=== PATIENT | female | born 2000 | race Caucasian/White ===

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

== ENCOUNTER 2020-05-10 22:39 | Emergency (ER) | payer OTHER ==
[2020-05-10 22:48] VITALS: RESP 16; TEMP 99
[2020-05-11 01:20] VITALS: BP 101/63; PULSE 96
[2020-05-11 01:24] LABS: Basophils # (A) 0.1 k/uL (0-0.2); Basophils % (A) 1 %; Eosinophils # (A) 0.1 k/uL (0-0.7); Eosinophils % (A) 1 %; HCT 33.4 % (34.0-46.0); HGB 11.5 gm/dL (11.4-16.0); Lymphocytes % (A) 26 %; MCH 29.9 pg (25.0-35.0); MCHC 34.3 g/dL (31.0-37.0); MCV 87.2 fL (80.0-100.0); Mean Platelet Volume 6.7; Monocytes # (A) 0.6 k/uL (0-1.0); Monocytes % (A) 6 %; Neutrophils # (A) 7.4 k/uL (1.3-7.7); Neutrophils % (A) 65 %; Platelet Count 302 k/uL (150-450); RBC 3.83 m/uL (3.80-5.40); RDW 12.2 % (11.5-15.5); WBC 11.3 k/uL (3.8-10.6)
[2020-05-11 01:43] LABS: ALT 11 U/L (4-34); AST 25 U/L (14-36); African American GFR (CKD) >90 (>60 ml/min/1.73 sqM); Albumin 3.7 g/dL (3.5-5.0); Alkaline Phosphatase 79 U/L (38-126); Anion Gap 6 mmol/L; Blood Urea Nitrogen 11 mg/dL (7-17); Calcium 9.1 mg/dL (8.4-10.2); Carbon Dioxide 27 mmol/L (22-30); Chloride 104 mmol/L (98-107); Glucose 91 mg/dL (74-99); Non-African American GFR(CKD) >90 (>60 ml/min/1.73 sqM); Potassium 3.9 mmol/L (3.5-5.1); Sodium 137 mmol/L (137-145); Total Bilirubin 0.3 mg/dL (0.2-1.3); Total Protein 6.7 g/dL (6.3-8.2)
--- NOTE | 2020-05-11 01:47 | US ---
EXAM: US First Trimester , Transabdominal and Transvaginal CLINICAL HISTORY: Pain. TECHNIQUE: Real-time transabdominal and transvaginal obstetrical ultrasound of the maternal pelvis and a first trimester with image documentation. Transvaginal imaging was used for better evaluation of the fetus and adnexa. COMPARISON: No relevant prior studies available. FINDINGS: The uterus is within normal limits for size and contour without myometrial mass. There is no intrauterine gestational sac. The lower aspect of the endometrial canal and the cervix are very distended with very heterogeneous material up to a thickness of 5.7 cm. The majority of this likely represents a blood clot. Some retained products of conception or possible though this is not highly vascular. Neither maternal ovary could be identified due to extensive gas in the adnexal regions. No adnexal mass or significant free fluid is evident. IMPRESSION: No intrauterine gestational sac. Lower endometrium endocervical canal markedly distended with heterogeneous material which may represent accommodation of blood clot and retained products of conception.
[2020-05-11 01:57] LABS: HCG,Quantitative Serum 282.9 mIU/mL
--- NOTE | 2020-05-11 02:42 | ED ---
General Adult HPI - General Chief complaint: Vaginal Bleeding Stated complaint: Vaginal Bleeding Time Seen by Provider: 05/10/20 23:18 Source: patient, RN notes reviewed, old records reviewed Mode of arrival: ambulatory Limitations: no limitations - History of Present Illness Initial comments: 20-year-old female patient to ED for evaluation patient was approximately 10 weeks sensation when she was told that she had a miscarriage last Saturday. She had some vaginal bleeding and then reportedly had an ultrasound which did not display any signs of life. Patient had some bleeding after that subsided. Patient reported today she again has been having some vaginal bleeding and passing clots. Denies any other complaints. Systemic: Pt denies fatigue, fever/chills, rash. Pt denies weakness, night sweats, weight loss. Neuro: Pt denies headache, visual disturbances, syncope or pre-syncope. HEENT: Pt denies ocular discharge or irritation, otalgia, rhinorrhea, pharyngitis or notable lymphadenopathy. Cardiopulmonary: Pt denies chest pain, SOB, heart palpitations, dyspnea on exertion. Abdominal/GI: Pt denies abdominal pain, n/v/d. : Pt denies dysuria, burning w/ urination, frequency/urgency. Denies new onset urinary or bowel incontinence. MSK: Pt denies myalgia, loss of strength or function in extremities. Neuro: Pt denies new onset weakness, paresthesias. - Related Data Home Medications Medication Instructions Recorded Confirmed No Known Home Medications 06/09/16 06/09/16 Allergies Allergy/AdvReac Type Severity Reaction Status Date / Time No Known Allergies Allergy Verified 05/10/20 22:48 Review of Systems ROS Statement: Those systems with pertinent positive or pertinent negative responses have been documented in the HPI. ROS Other: All systems not noted in ROS Statement are negative. Past Medical History Past Medical History: No Reported History History of Any Multi-Drug Resistant Organisms: None Reported Past Surgical History: No Surgical Hx Reported Past Psychological History: ADD/ADHD, Anxiety Smoking Status: Vaper Past Alcohol Use History: None Reported Past Drug Use History: Marijuana General Exam - General Exam Comments Initial Comments: Constitutional: NAD, AOX3, Pt has pleasant affect. HEENT: NC/AT, trachea midline, neck supple, no lymphadenopathy. External ears appear normal, without discharge. Mucous membranes moist. Eyes PERRLA, EOM intact. There is no scleral icterus. No pallor noted. Cardiopulmonary: RRR, no murmurs, rubs or gallops, no JVD noted. Lungs CTAB in anterior and posterior aden. No peripheral edema. Abdominal exam: Abdomen soft and non-distended. Abdomen non-tender to palpation in all 4 quadrants. Bowel sounds active in LLQ. No hepatosplenomegaly. No ecchymosis Neuro: CN II-XII grossly intact. No nuchal rigidity. No raccon eyes, no suazo s ign, no hemotympanum. No cervical spinal tenderness. MSK: No posterior calf tenderness bilaterally, homans sign negative bilaterally. Posterior tibialis and radial pulse +2 bilaterally. Sensation intact in upper and lower extremities. Full active ROM in upper and lower extremities, 5/5 stregnth. Pelvic: Cervix is visualized and is open. Clots are noted, blood and posterior vaginal vault, small amount of active bleeding is noted. Mucosa pink, no lesions. Chaperogned by Kaylah Limitations: no limitations Course Vital Signs 05/10/20 05/11/20 22:45 01:18 Temperature 99 F Pulse Rate 108 H 96 Respiratory 16 Rate Blood Pressure 122/73 101/63 O2 Sat by Pulse 100 98 Oximetry Medical Decision Making - Medical Decision Making 20-year-old female patient to ED. Patient vaginal bleeding last Saturday went to another facility and was told she is having a miscarriage. Patient then had some vaginal bleeding and passing clots today. She reports that she has gone through around 10 pads throughout the day. Laboratory investigations hemoglobin of 11.5. HCG Quant of 282. Transvaginal ultrasound displayed lower endometrium endocervical canal markedly distended with heterogenous material which blood clot or possible retained products of conception. They should reports that she is a positive blood type has never had to have RhoGAM before. This has not resulted however patient is requesting to be discharged prior. Discussed risks and benefits. Patient will be discharged will follow up with primary care provider and OB/transforaminal troponin worsening symptoms. Case discussed with Dr. Eric. - Lab Data Result diagrams: 05/10/20 23:36 05/10/20 23:36 Lab Results 05/10/20 05/10/20 05/11/20 Range/Units 23:36 23:36 00:21 WBC 11.3 H (3.8-10.6) k/uL RBC 3.83 (3.80-5.40) m/uL Hgb 11.5 (11.4-16.0) gm/dL Hct 33.4 L (34.0-46.0) % MCV 87.2 (80.0-100.0) fL MCH 29.9 (25.0-35.0) pg MCHC 34.3 (31.0-37.0) g/dL RDW 12.2 (11.5-15.5) % Plt Count 302 (150-450) k/uL MPV 6.7 Neutrophils % 65 % Lymphocytes % 26 % Monocytes % 6 % Eosinophils % 1 % Basophils % 1 % Neutrophils # 7.4 (1.3-7.7) k/uL Lymphocytes # 3.0 (1.0-4.8) k/uL Monocytes # 0.6 (0-1.0) k/uL Eosinophils # 0.1 (0-0.7) k/uL Basophils # 0.1 (0-0.2) k/uL Sodium 137 (137-145) mmol/L Potassium 3.9 (3.5-5.1) mmol/L Chloride 104 (98-107) mmol/L Carbon Dioxide 27 (22-30) mmol/L Anion Gap 6 mmol/L BUN 11 (7-17) mg/dL Creatinine 0.47 L (0.52-1.04) mg/dL Est GFR (CKD-EPI)AfAm >90 (>60 ml/min/1.73 sqM) Est GFR (CKD-EPI)NonAf >90 (>60 ml/min/1.73 sqM) Glucose 91 (74-99) mg/dL Calcium 9.1 (8.4-10.2) mg/dL Total Bilirubin 0.3 (0.2-1.3) mg/dL AST 25 (14-36) U/L ALT 11 (4-34) U/L Alkaline Phosphatase 79 (38-126) U/L Total Protein 6.7 (6.3-8.2) g/dL Albumin 3.7 (3.5-5.0) g/dL HCG, Quant 282.9 mIU/mL Urine HCG, Qual Detected (Not Detectd) Disposition Clinical Impression: Miscarriage Disposition: HOME SELF-CARE Condition: Stable Instructions (If sedation given, give patient instructions): Miscarriage (ED) Additional Instructions: Follow up with PCP and sustainability project coordinator tomorrow. Have HCG trended down to zero by sustainability project coordinator. Return to ED with any worsening symptoms. Is patient prescribed a controlled substance at d/c from ED?: No Referrals: Alexa Aguiar MD [Primary Care Provider] - 1-2 days
== END 2020-05-11 03:01 | disposition home or self-care (01) ==
LOC: EC 22:39
DX: O03.9 Complete or unspecified spontaneous abortion without complication (principal); N85.8 Other specified noninflammatory disorders of uterus; F17.290 Nicotine dependence, other tobacco product, uncomplicated
CPT/HCPCS: 36415; 76801; 76817; 80053; 81025; 84702; 85025; 86850; 86900; 86901; 99284

== ENCOUNTER 2020-12-11 14:30 | Emergency (ER) | payer OTHER ==
[2020-12-11 14:54] VITALS: BP 90/59; PULSE 83; RESP 16; TEMP 98
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
--- NOTE | 2020-12-11 15:48 | XR ---
EXAMINATION TYPE: XR foot complete LT DATE OF EXAM: 12/11/2020 COMPARISON: NONE HISTORY: Pain and swelling TECHNIQUE: 3 views FINDINGS: There are nondisplaced fractures of the neck of the second and third and fourth metatarsal heads. There is no dislocation. The toes appear intact. Hindfoot appears intact. On the lateral view there is a small linear density projected over the soft tissues on the plantar aspect of the hindfoot at the level of the anterior calcaneus. This could be a foreign body. IMPRESSION: Multiple metatarsal nondisplaced fractures. Possible small foreign body.
== END 2020-12-11 17:05 | disposition home or self-care (01) ==
LOC: EC 14:30
DX: S92.325A Nondisplaced fracture of second metatarsal bone, left foot, initial encounter for closed fracture (principal); S92.335A Nondisplaced fracture of third metatarsal bone, left foot, initial encounter for closed fracture; S92.345A Nondisplaced fracture of fourth metatarsal bone, left foot, initial encounter for closed fracture; F17.290 Nicotine dependence, other tobacco product, uncomplicated; F90.9 Attention-deficit hyperactivity disorder, unspecified type; F41.9 Anxiety disorder, unspecified; F12.90 Cannabis use, unspecified, uncomplicated; X58.XXXA Exposure to other specified factors, initial encounter
CPT/HCPCS: 29515; 99283

== ENCOUNTER 2021-01-28 12:49 | Emergency (ER) | payer OTHER ==
[2021-01-28 12:53] VITALS: BP 104/70; PULSE 99; RESP 18; TEMP 98.8
[2021-01-28 13:36] LABS: Appearance,Urine Cloudy (Clear); Bacteria,Urine Rare /hpf; Bilirubin,Urine Negative (Negative); Blood,Urine Large (Negative); Color,Urine Yellow; Glucose,Urine (UA) Negative (Negative); Ketones,Urine Negative (Negative); Leukocyte Esterase,Urine Large (Negative); Mucus,Urine Many /hpf; Nitrite,Urine Negative (Negative); Protein,Urine 2+ (Negative); RBC,Urine >182 /hpf (0-5); Specific Gravity,Urine 1.021 (1.001-1.035); Squamous Epithelial Cell,Urine 3 /hpf (0-4); Urobilinogen,Urine <2.0 mg/dL (<2.0); WBC,Urine >182 /hpf (0-5)
--- NOTE | 2021-01-28 13:48 | ED ---
Female Urogenital HPI - General Chief complaint: Urogenital Stated complaint: low back pain Time Seen by Provider: 01/28/21 12:56 Source: patient, RN notes reviewed Mode of arrival: wheelchair Limitations: no limitations - History of Present Illness Initial comments: This a 20-year-old female presents emergency Department with chief complaint of dysuria, urinary frequency. Patient states started a few days ago. She started having some flank pain this morning. Patient is concerned that she has a recurrent urinary tract infection. Patient denies any chance pregnancycontacts other complaints. Last Menstrual Period: 01/13/21 - Related Data Previous Rx's Medication Instructions Recorded Cephalexin [Keflex] 500 mg PO Q6HR #28 cap 01/28/21 Allergies Allergy/AdvReac Type Severity Reaction Status Date / Time No Known Allergies Allergy Verified 01/28/21 12:53 Review of Systems ROS Statement: Those systems with pertinent positive or pertinent negative responses have been documented in the HPI. ROS Other: All systems not noted in ROS Statement are negative. Past Medical History Past Medical History: No Reported History History of Any Multi-Drug Resistant Organisms: None Reported Past Surgical History: No Surgical Hx Reported Past Psychological History: ADD/ADHD, Anxiety Smoking Status: Never smoker Past Alcohol Use History: None Reported Past Drug Use History: Marijuana General Exam Limitations: no limitations General appearance: alert, in no apparent distress Head exam: Present: atraumatic, normocephalic, normal inspection Respiratory exam: Present: normal lung sounds bilaterally. Absent: respiratory distress, wheezes, rales, rhonchi, stridor Cardiovascular Exam: Present: regular rate, normal rhythm, normal heart sounds. Absent: systolic murmur, diastolic murmur, rubs, gallop, clicks GI/Abdominal exam: Present: soft, normal bowel sounds. Absent: distended, tenderness, guarding, rebound, rigid Back exam: Absent: CVA tenderness (R), CVA tenderness (L) Course Vital Signs 01/28/21 12:50 Temperature 98.8 F Pulse Rate 99 Respiratory 18 Rate Blood Pressure 104/70 O2 Sat by Pulse 99 Oximetry Medical Decision Making - Medical Decision Making Patient has evidence of urinary tract infection was started on oral antibiotics return parameters were discussed. - Lab Data Lab Results 01/28/21 01/28/21 Range/Units 13:15 13:15 Urine Color Yellow Urine Appearance Cloudy H (Clear) Urine pH 6.0 (5.0-8.0) Ur Specific [place] 1.021 (1.001-1.035) Urine Protein 2+ H (Negative) Urine Glucose (UA) Negative (Negative) Urine Ketones Negative (Negative) Urine Blood Large H (Negative) Urine Nitrite Negative (Negative) Urine Bilirubin Negative (Negative) Urine Urobilinogen <2.0 (<2.0) mg/dL Ur Leukocyte Esterase Large H (Negative) Urine RBC >182 H (0-5) /hpf Urine WBC >182 H (0-5) /hpf Urine WBC Clumps Moderate H (None) /hpf Ur Squamous Epith Cells 3 (0-4) /hpf Urine Bacteria Rare H (None) /hpf Urine Mucus Many H (None) /hpf Urine HCG, Qual Not Detected (Not Detectd) Disposition Clinical Impression: Urinary tract infection Disposition: HOME SELF-CARE Condition: Stable Instructions (If sedation given, give patient instructions): Urinary Tract Infection in Women (ED) Additional Instructions: Please return to the Emergency Department if symptoms worsen or any other concerns. Prescriptions: Cephalexin [Keflex] 500 mg PO Q6HR #28 cap Is patient prescribed a controlled substance at d/c from ED?: No Referrals: Alexa Aguiar MD [Primary Care Provider] - 1-2 days Time of Disposition: 13:48
== END 2021-01-28 14:06 | disposition home or self-care (01) ==
LOC: EC 12:49
DX: N39.0 Urinary tract infection, site not specified (principal); F90.9 Attention-deficit hyperactivity disorder, unspecified type; F41.9 Anxiety disorder, unspecified; F12.90 Cannabis use, unspecified, uncomplicated
CPT/HCPCS: 81001; 81025; 87086; 99284

== ENCOUNTER 2021-12-08 06:00 | Inpatient (IN) | payer OTHER ==
[2021-12-08] MEDS ORDERED: CARBOPROST TROMETHAMINE 250 MCG/ML 1 ML AMP IM PRN (06:24)
[2021-12-08] MEDS ORDERED: METHYLERGONOVINE 0.2 MG/ML 1 ML AMP IM PRN (06:24)
[2021-12-08] MEDS ORDERED: LIDOCAINE 0.5% (PF) 5 MG/ML (50 ML SDV) SQ PRN (06:24)
[2021-12-08] MEDS ORDERED: TERBUTALINE 1 MG/ML VIAL SQ PRN (06:24)
[2021-12-08] MEDS ORDERED: OXYTOCIN 10 UNIT/ML 1 ML VIAL IM PRN (06:24)
[2021-12-08] MEDS ORDERED: OXYTOCIN 30 UNITS/500 ML NS 30 UNIT in SALINE 1 500ML.BAG IV SCH ×2 (06:30→15:15)
[2021-12-08] MEDS: LACTATED RINGERS 1,000 ML IV SCH ×3 (06:40→11:13)
[2021-12-08 07:02] LABS: Basophils # (A) 0.1 k/uL (0-0.2); Basophils % (A) 1 %; Eosinophils # (A) 0.2 k/uL (0-0.7); Eosinophils % (A) 1 %; HCT 34.1 % (34.0-46.0); HGB 11.4 gm/dL (11.4-16.0); Lymphocytes # (A) 2.8 k/uL (1.0-4.8); Lymphocytes % (A) 22 %; MCH 30.6 pg (25.0-35.0); MCHC 33.3 g/dL (31.0-37.0); MCV 91.8 fL (80.0-100.0); Mean Platelet Volume 7.7; Monocytes # (A) 0.6 k/uL (0-1.0); Monocytes % (A) 5 %; Neutrophils # (A) 8.8 k/uL (1.3-7.7); Neutrophils % (A) 69 %; Platelet Count 331 k/uL (150-450); RBC 3.72 m/uL (3.80-5.40); RDW 12.7 % (11.5-15.5); WBC 12.7 k/uL (3.8-10.6)
[2021-12-08 07:10] LABS: Amphetamine Screen,Urine Not Detected (NotDetected); Barbiturate Screen,Urine Not Detected (NotDetected); Benzodiazepines Screen,Urine Not Detected (NotDetected); Cocaine Screen,Urine Not Detected (NotDetected); Methadone Screen, Urine Not Detected (NotDetected); Opiate Screen,Urine Not Detected (NotDetected); Oxycodone Screen, Urine Not Detected (NotDetected); Phencyclidine Screen,Urine Not Detected (NotDetected); Tricyclic Antidepressant,Urine Not Detected (NotDetected); Urn Cannabinoid Scrn Detected (NotDetected)
--- NOTE | 2021-12-08 08:04 | P.HPOB ---
History of Present Illness H&P Date: 12/08/21 Chief Complaint: Induction of labor 21-year-old presents at 37 weeks and 3 days for induction of labor. Her cervix is 2 cm dilated, 70% effaced, and -2 station. She is al irregularly. heart tones are 135 with moderate variability and reactive. This patient is being delivered at 37 weeks due to history of drug use, cocaine and THC, IUGR, circumvallate placenta, elevated Dopplers. Review of Systems All systems: negative Constitutional: Denies chills, Denies fever Eyes: denies blurred vision, denies pain Ears, nose, mouth and throat: Denies headache, Denies sore throat Cardiovascular: Denies chest pain, Denies shortness of breath Respiratory: Denies cough Gastrointestinal: Denies abdominal pain, Denies diarrhea, Denies nausea, Denies vomiting Genitourinary: Denies dysuria, Denies hematuria Musculoskeletal: Denies myalgias Integumentary: Denies pruritus, Denies rash Neurological: Denies numbness, Denies weakness Psychiatric: Denies anxiety, Denies depression Endocrine: Denies fatigue, Denies weight change Past Medical History Past Medical History: No Reported History History of Any Multi-Drug Resistant Organisms: None Reported Past Surgical History: No Surgical Hx Reported Additional Past Surgical History / Comment(s): surgery on right arm in second grade Past Anesthesia/Blood Transfusion Reactions: No Reported Reaction Past Psychological History: ADD/ADHD, Anxiety, PTSD Smoking Status: Former smoker Past Alcohol Use History: None Reported Past Drug Use History: Cocaine (has not used in several months), Marijuana (pt states last used 2-3 days ago, using for PTSD) - Past Family History Mother Family Medical History: No Reported History Medications and Allergies Home Medications Medication Instructions Recorded Confirmed Type Vits96/Iron Fum/Folic 1 tab PO DAILY 12/08/21 12/08/21 History [ Tablet] Sertraline [Zoloft] 1 tab PO DAILY 12/08/21 12/08/21 History Allergies Allergy/AdvReac Type Severity Reaction Status Date / Time No Known Allergies Allergy Verified 01/28/21 12:53 Exam Osteopathic Statement: *. No significant issues noted on an osteopathic structural exam other than those noted in the History and Physical/Consult. Vital Signs Temp Pulse Resp BP 06/24/22 06:20 97.5 F L 71 17 112/58 Intake and Output 12/07/21 12/08/21 12/08/21 22:59 06:59 14:59 Other: Weight 60.328 kg Heart: Regular rate and rhythm Lungs: Clear to auscultation bilaterally Abdomen: Soft, nontender Extremities: Negative Homans sign Results Result Diagrams: 12/08/21 06:50 Abnormal Lab Results - Last 24 Hours (Table) 12/08/21 12/08/21 Range/Units 06:10 06:50 WBC 12.7 H (3.8-10.6) k/uL RBC 3.72 L (3.80-5.40) m/uL Neutrophils # 8.8 H (1.3-7.7) k/uL U Marijuana (THC) Screen Detected H (NotDetected) Assessment and Plan (1) IUGR (intrauterine growth restriction) Current Visit: Yes Status: Acute Code(s): RGW5557 - SNOMED Code(s): 68583877 (2) 37 weeks gestation of Current Visit: Yes Status: Acute Code(s): Z3A.37 - 37 WEEKS GESTATION OF SNOMED Code(s): 90683601 (3) Circumvallate placenta Current Visit: Yes Status: Acute Code(s): O43.119 - CIRCUMVALLATE PLACENTA, UNSPECIFIED TRIMESTER SNOMED Code(s): 6719027 (4) Drug use affecting Current Visit: Yes Status: Acute Code(s): O99.320 - DRUG USE COMPLICATING , UNSPECIFIED TRIMESTER SNOMED Code(s): 09363568 Plan: 1. induction of labor with amniotomy Pitocin 2. Anticipate normal vaginal delivery 3. Social work consult after delivery
[2021-12-08] MEDS ORDERED: SODIUM CHLORIDE 0.9% 100 ML BAG ONE (10:30)
[2021-12-08] MEDS ORDERED: ROPIVACAINE 5MG/ML 20ML VIAL ONE (10:30)
[2021-12-08] MEDS ORDERED: fentaNYL (PF) 50 MCG/ML 5 ML AMP ONE (10:30)
[2021-12-08] MEDS ORDERED: SIMETHICONE 80 MG CHEWABLE PO PRN (15:12)
[2021-12-08] MEDS ORDERED: HYDROCORTISONE 2.5% RECTAL CREAM 30 GM TUBE RECTAL PRN (15:12)
[2021-12-08] MEDS ORDERED: diphenhydrAMINE 50 MG CAP PO PRN (15:12)
[2021-12-08] MEDS ORDERED: BENZOCAINE/MENTHOL SPRAY 1 GM/SPRAY AEROSOL TOPICAL PRN (15:12)
[2021-12-08] MEDS ORDERED: ZOLPIDEM 5 MG TAB PO PRN (15:12)
[2021-12-08] MEDS ORDERED: LANOLIN CREAM 5 GM TUBE TOPICAL PRN (15:12)
[2021-12-08] MEDS ORDERED: diphenhydrAMINE 50 MG/ML 1 ML VIAL IVP PRN ×2 (15:12)
[2021-12-08] MEDS ORDERED: diphenhydrAMINE 25 MG CAP PO PRN (15:12)
[2021-12-08] MEDS: IBUPROFEN 600 MG TAB PO PRN ×2 (15:56→21:37)
[2021-12-08] MEDS: ACETAMINOPHEN TAB 325 MG TAB PO PRN (20:10)
[2021-12-08] MEDS: SENNOSIDES-DOCUSATE SODIUM 1 EACH TAB PO SCH (20:11)
[2021-12-09 07:48] LABS: Basophils % (A) 0 %; Eosinophils # (A) 0.1 k/uL (0-0.7); Eosinophils % (A) 1 %; HCT 33.7 % (34.0-46.0); HGB 11.3 gm/dL (11.4-16.0); Lymphocytes # (A) 2.2 k/uL (1.0-4.8); Lymphocytes % (A) 13 %; MCH 31.1 pg (25.0-35.0); MCHC 33.5 g/dL (31.0-37.0); MCV 92.9 fL (80.0-100.0); Mean Platelet Volume 7.5; Monocytes # (A) 0.6 k/uL (0-1.0); Monocytes % (A) 4 %; Neutrophils # (A) 13.4 k/uL (1.3-7.7); Neutrophils % (A) 82 %; Platelet Count 296 k/uL (150-450); RBC 3.63 m/uL (3.80-5.40); RDW 12.8 % (11.5-15.5); WBC 16.3 k/uL (3.8-10.6)
--- NOTE | 2021-12-09 07:54 | P.PNOBGVD ---
Subjective - Subjective Principal diagnosis: Status post normal vaginal delivery day #1 Interval history: Patient seen and examined. Denies nausea, vomiting, chest pain, sugars of breath or any calf pain. Patient reports: Reports appetite normal, Reports voiding normally, Reports pain well controlled, Reports ambulating normally : doing well Objective - Latest Vital Signs Latest vital signs: Vital Signs Temp Pulse Resp BP Pulse Ox 12/09/21 00:27 98.3 F 82 18 98/66 98 12/08/21 20:00 98.1 F 75 18 95/58 99 12/08/21 17:02 98.5 F 68 17 105/60 12/08/21 16:31 97.9 F 74 17 106/58 12/08/21 16:02 84 17 108/61 12/08/21 15:47 89 16 106/56 12/08/21 15:32 95 17 118/58 12/08/21 15:15 82 17 116/58 12/08/21 15:02 97.0 F L 89 17 111/50 Intake and Output 12/08/21 12/09/21 12/09/21 22:59 06:59 14:59 Output Total 250 Balance -250 Output: Output, Quantitative 250 Blood Loss Other: # Voids 2 2 - Exam Lungs: bilateral: normal Chest: Normal S1, Normal S2 Extremities: Present: normal Abdomen: Present: normal appearance, soft Uterus: Present: normal, firm - Labs Labs: Abnormal Lab Results - Last 24 Hours (Table) 12/09/21 Range/Units 07:27 WBC 16.3 H (3.8-10.6) k/uL RBC 3.63 L (3.80-5.40) m/uL Hgb 11.3 L (11.4-16.0) gm/dL Hct 33.7 L (34.0-46.0) % Neutrophils # 13.4 H (1.3-7.7) k/uL Assessment and Plan (1) IUGR (intrauterine growth restriction) Current Visit: Yes Status: Acute Code(s): VJK7002 - SNOMED Code(s): 95203244 (2) 37 weeks gestation of Current Visit: Yes Status: Resolved Code(s): Z3A.37 - 37 WEEKS GESTATION OF SNOMED Code(s): 69656689 (3) Circumvallate placenta Current Visit: Yes Status: Resolved Code(s): O43.119 - CIRCUMVALLATE PLACENTA, UNSPECIFIED TRIMESTER SNOMED Code(s): 3718140 (4) Drug use affecting Current Visit: Yes Status: Acute Code(s): O99.320 - DRUG USE COMPLICATING , UNSPECIFIED TRIMESTER SNOMED Code(s): 65664415 (5) Status post normal vaginal delivery Current Visit: Yes Status: Acute Code(s): XQJ9209 - SNOMED Code(s): 807547977 Plan: 1. Continue care
[2021-12-09] MEDS: IBUPROFEN 600 MG TAB PO PRN (07:57)
[2021-12-09 08:47] VITALS: BP 97/60; PULSE 62; RESP 12; TEMP 98.5
[2021-12-09] MEDS: ACETAMINOPHEN TAB 325 MG TAB PO PRN (12:32)
[2021-12-09] MEDS: SENNOSIDES-DOCUSATE SODIUM 1 EACH TAB PO SCH (12:47)
--- NOTE | 2021-12-09 19:01 | P.PROBDLV ---
Vaginal Delivery Note - . Vaginal Delivery Note: 21-year-old presents at 37 weeks and 3 days for induction of labor. Her cervix is 2 cm dilated, 70% effaced, and -2 station. She is al irregularly. heart tones are 135 with moderate variability and reactive. This patient is being delivered at 37 weeks due to history of drug use, cocaine and THC, IUGR, circumvallate placenta, elevated Dopplers. Adjustment augmentation was started and amniotomy performed at 7:27 AM, clear fluid noted. She progressed slowly throughout the day and did receive an epidural when she was uncomfortable. Her cervix was completely dilated around 1430. She pushed, delivered a viable female over intact perineum under epidural anesthesia at 1451. Head delivered MARISOL, a double nuchal cord was identified and tight. The umbilical cord was doubly clamped at the perineum and cut on one from the baby's neck, anterior shoulder delivered gentle downward guidance for by posterior shoulder and rest of body. Nose and mouth bulb suctioned, cord clamped and cut, infant placed on mother's abdomen. Apgars 8, 9, weight 4 lbs. 15 oz. Placenta delivered spontaneously, intact with three-vessel cord at 1453. Vagina, cervix, perineum inspected. No lacerations noted. Estimated blood loss 150 mL. Mother and baby in stable condition.
--- NOTE | 2021-12-09 19:02 | P.DS ---
Providers Date of admission: 12/08/21 06:00 Expected date of discharge: 12/09/21 Attending physician: Patricia Marin Primary care physician: Stated None - Discharge Diagnosis(es) (1) IUGR (intrauterine growth restriction) Status: Acute (2) 37 weeks gestation of Status: Resolved (3) Circumvallate placenta Status: Resolved (4) Drug use affecting Status: Acute (5) Status post normal vaginal delivery Status: Acute Hospital Course: She presented for induction of labor for intrauterine growth section. She underwent this normal vaginal delivery. course was uncomplicated. She denies nausea, vomiting, chest pain, shortness of breath or any calf pain. She was discharged home day #1 in stable condition to follow-up with me in 6 weeks. Plan - Discharge Summary New Discharge Prescriptions: No Action Sertraline [Zoloft] 1 tab PO DAILY Vits96/Iron Fum/Folic [ Tablet] 1 tab PO DAILY Discharge Medication List Vits96/Iron Fum/Folic [ Tablet] 1 tab PO DAILY 12/08/21 [History] Sertraline [Zoloft] 1 tab PO DAILY 12/08/21 [History] Follow up Appointment(s)/Referral(s): Patricia Marin DO [Doctor of Osteopathic Medicine] - 01/26/22 10:45 am Discharge Disposition: HOME SELF-CARE
== END 2021-12-09 12:30 | disposition home or self-care (01) | DRG 805 ==
LOC: 4FBP 06:00
PROVIDERS: ADMIT Obstetrics & Gynecology; ATTEND Obstetrics & Gynecology
PROC: 10E0XZZ Delivery of Products of Conception, External Approach (ICD-10-PCS; principal; 2021-12-08)
PROC: 3E033VJ Introduction of Other Hormone into Peripheral Vein, Percutaneous Approach (ICD-10-PCS; 2021-12-08)
PROC: 10907ZC Drainage of Amniotic Fluid, Therapeutic from Products of Conception, Via Natural or Artificial Opening (ICD-10-PCS; 2021-12-08)
DX: O36.5930 Maternal care for other known or suspected poor fetal growth, third trimester, not applicable or unspecified (principal); O41.1430 Placentitis, third trimester, not applicable or unspecified; Z37.0 Single live birth; O99.324 Drug use complicating childbirth; O99.344 Other mental disorders complicating childbirth; Z3A.37 37 weeks gestation of pregnancy; O43.113 Circumvallate placenta, third trimester; F14.90 Cocaine use, unspecified, uncomplicated; F12.90 Cannabis use, unspecified, uncomplicated; F43.10 Post-traumatic stress disorder, unspecified; F90.9 Attention-deficit hyperactivity disorder, unspecified type; Z87.891 Personal history of nicotine dependence; O69.1XX0 Labor and delivery complicated by cord around neck, with compression, not applicable or unspecified; O77.0 Labor and delivery complicated by meconium in amniotic fluid
CPT/HCPCS: 80306; 85025; 86850; 86900; 86901; 88307

== ENCOUNTER 2024-07-18 08:46 | Inpatient (IN) | payer OTHER ==
--- NOTE | 2024-07-18 08:54 | P.HPOB ---
History of Present Illness H&P Date: 07/18/24 Chief Complaint: Contractions Ms. Yu is a 24 year old at 38 weeks gestation with EDC of 2-15-24 (by 9 week ED US) who presents with regular uterine contractions. She gets care with Dr. Null and denies any complications this . Obstetric history: 2 FTVD, 2018 and 2022. 2nd complicated by IUGR with IOL at 37 weeks. Past Medical history: Denies Medicaitons: PNVs Social History: THC use Surgical history: arm surgery Past Medical History Past Medical History: No Reported History History of Any Multi-Drug Resistant Organisms: None Reported Past Surgical History: No Surgical Hx Reported Additional Past Surgical History / Comment(s): surgery on right arm in second grade Past Anesthesia/Blood Transfusion Reactions: No Reported Reaction Past Psychological History: ADD/ADHD, Anxiety, PTSD Smoking Status: Former smoker Past Alcohol Use History: None Reported Past Drug Use History: Cocaine (has not used in several months), Marijuana (pt states last used 2-3 days ago, using for PTSD) - Past Family History Mother Family Medical History: No Reported History Medications and Allergies Home Medications Medication Instructions Recorded Confirmed Type Vits96/Iron Fum/Folic 1 tab PO DAILY 12/08/21 12/08/21 History [ Tablet] Sertraline [Zoloft] 1 tab PO DAILY 12/08/21 12/08/21 History Allergies Allergy/AdvReac Type Severity Reaction Status Date / Time No Known Allergies Allergy Verified 01/28/21 12:53 Exam Focused physical exam is performed. This is a healthy-appearing in no apparent distress. Breathing is non-labored. Abdomen is gravid and non-tender. Cervical exam is 5/100/0. Extremities non-tender and non-edematous. heart tones are Category I and tocometer is graphing contractions every 2-4 minutes. Assessment and Plan Assessment: 24 year old at 38 weeks in labor Plan: Admit, Pen G for GBS ppx, epidural prn, expectant management, continuous EFM and tocometer. Anticipate vaginal delivery.
[2024-07-18] MEDS ORDERED: miSOPROStoL 200 MCG TAB PO PRN (08:56)
[2024-07-18] MEDS ORDERED: miSOPROStoL 200 MCG TAB RECTAL PRN (08:56)
[2024-07-18] MEDS ORDERED: TERBUTALINE 1 MG/ML VIAL SQ PRN (08:56)
[2024-07-18] MEDS ORDERED: LIDOCAINE 0.5% (PF) 5 MG/ML (50 ML SDV) SQ PRN (08:56)
[2024-07-18] MEDS ORDERED: METHYLERGONOVINE 0.2 MG/ML 1 ML AMP IM PRN (08:56)
[2024-07-18] MEDS ORDERED: TRANEXAMIC 1,000 MG/100ML-NACL 1,000 MG in EMPTY BAG 1 BAG IV PRN (08:56)
[2024-07-18] MEDS ORDERED: CARBOPROST TROMETHAMINE 250 MCG/ML 1 ML AMP IM PRN (08:56)
[2024-07-18] MEDS ORDERED: OXYTOCIN 30 UNITS/500 ML NS 30 UNIT in SALINE 1 500ML.BAG IV SCH (09:00)
[2024-07-18 09:18] LABS: Basophils % (A) 0 %; Eosinophils # (A) 0.1 k/uL (0-0.7); Eosinophils % (A) 1 %; HGB 10.6 gm/dL (11.4-16.0); Lymphocytes # (A) 2.9 k/uL (1.0-4.8); Lymphocytes % (A) 16 %; MCH 29.8 pg (25.0-35.0); MCV 90.3 fL (80.0-100.0); Mean Platelet Volume 7.9; Monocytes # (A) 0.7 k/uL (0-1.0); Monocytes % (A) 4 %; Neutrophils # (A) 13.5 k/uL (1.3-7.7); Neutrophils % (A) 77 %; Platelet Count 383 k/uL (150-450); RBC 3.55 m/uL (3.80-5.40); RDW 13.8 % (11.5-15.5); WBC 17.5 k/uL (3.8-10.6)
[2024-07-18] MEDS: PENICILLIN G POTASSIUM 5,000,000 UNIT in DEXTROSE 5% IN WATER 100 ML IVPB STA (09:18)
[2024-07-18] MEDS: LACTATED RINGERS 1,000 ML IV SCH (09:18)
[2024-07-18 09:38] LABS: Urn Cannabinoid Scrn Detected (NotDetected)
[2024-07-18 09:39] LABS: Amphetamine Screen,Urine Not Detected (NotDetected); Barbiturate Screen,Urine Not Detected (NotDetected); Benzodiazepines Screen,Urine Not Detected (NotDetected); Cocaine Screen,Urine Not Detected (NotDetected); Methadone Screen, Urine Not Detected (NotDetected); Opiate Screen,Urine Not Detected (NotDetected); Oxycodone Screen, Urine Not Detected (NotDetected); Phencyclidine Screen,Urine Not Detected (NotDetected); Tricyclic Antidepressant,Urine Not Detected (NotDetected)
[2024-07-18] MEDS: OXYTOCIN 10 UNIT/ML 1 ML VIAL IM PRN (12:31)
[2024-07-18] MEDS ORDERED: diphenhydrAMINE 25 MG CAP PO PRN (12:36)
[2024-07-18] MEDS ORDERED: LANOLIN CREAM 1 GM TUBE TOPICAL PRN (12:36)
[2024-07-18] MEDS ORDERED: HYDROCORTISONE 2.5% RECTAL CREAM 30 GM TUBE RECTAL PRN (12:36)
[2024-07-18] MEDS ORDERED: diphenhydrAMINE 50 MG/ML 1 ML VIAL IVP PRN ×2 (12:36)
[2024-07-18] MEDS ORDERED: ZOLPIDEM 5 MG TAB PO PRN (12:36)
[2024-07-18] MEDS ORDERED: SIMETHICONE 80 MG CHEWABLE PO PRN (12:36)
[2024-07-18] MEDS ORDERED: diphenhydrAMINE 50 MG CAP PO PRN (12:36)
[2024-07-18] MEDS ORDERED: BENZOCAINE/MENTHOL SPRAY 1 GM/SPRAY AEROSOL TOPICAL PRN (12:36)
--- NOTE | 2024-07-18 12:36 | P.PROBDLV ---
Vaginal Delivery Note - . Vaginal Delivery Note: DATE OF SERVICE: 07/18/2024 PROCEDURE: Normal Vaginal Delivery ATTENDING: Dr. Odilia Hargrove MD ESTIMATED BLOOD LOSS: 100 mL FINDINGS: VFI, Apgars 8/9. Weight 6 pounds (2745 grams) PROCEDURE: Ms. Yu is a 24 year old at 38 weeks presenting to labor a nd delivery in active labor. She received prental care with another facility. For further details, please review the admitting H&P. Penicillin G was given for GBS prophylaxis. AROM was undertaken at 1044 revealing clear amniotic fluid. She received epidural anesthesia per her request. The patient was completely dilated at 1213. A viable female was delivered at 1222 over an intact perineum. The was placed on the maternal abdomen and bulb suctioned. The was noted to be spontaneously crying. Cord was clamped and cut after a 60-second delay. The infant was handed off to the pediatric team. Placenta was delivered manually from the vagina after the umbilical cord was avulsed. Oxytocin was started to facilitate uterine tone. Uterine fundus was found to be firm and below the umbilicus upon fundal massage. Thorough examination of the cervix, vagina, periurethral area, and perineum revealed no lacerations. The patient is stable and allowed to begin the bonding process.
[2024-07-18] MEDS: IBUPROFEN 800 MG TAB PO SCH (13:24)
[2024-07-18] MEDS: PENICILLIN G POTASSIUM 2,500,000 UNIT in DEXTROSE 5% IN WATER 100 ML IVPB SCH (14:13)
[2024-07-18] MEDS: ONDANSETRON ODT 4 MG TAB PO PRN (17:04)
[2024-07-18] MEDS: ACETAMINOPHEN TAB 500 MG TAB PO SCH (17:06)
[2024-07-18] MEDS: SENNOSIDES-DOCUSATE SODIUM 1 EACH TAB PO SCH (20:51)
[2024-07-18 20:59] VITALS: RESP 16
[2024-07-19 06:00] LABS: Basophils # (A) 0.1 k/uL (0-0.2); Basophils % (A) 0 %; Eosinophils # (A) 0.1 k/uL (0-0.7); Eosinophils % (A) 0 %; HCT 31.1 % (34.0-46.0); HGB 10.4 gm/dL (11.4-16.0); Lymphocytes # (A) 2.2 k/uL (1.0-4.8); Lymphocytes % (A) 11 %; MCH 30.4 pg (25.0-35.0); MCHC 33.4 g/dL (31.0-37.0); MCV 91.1 fL (80.0-100.0); Mean Platelet Volume 7.8; Monocytes # (A) 0.9 k/uL (0-1.0); Monocytes % (A) 5 %; Neutrophils # (A) 16.8 k/uL (1.3-7.7); Neutrophils % (A) 83 %; Platelet Count 384 k/uL (150-450); RBC 3.42 m/uL (3.80-5.40); RDW 13.3 % (11.5-15.5); WBC 20.3 k/uL (3.8-10.6)
[2024-07-19 09:24] VITALS: BP 92/53; PULSE 79; TEMP 98.2
--- NOTE | 2024-07-19 10:47 | P.DS ---
Providers Date of admission: 07/18/24 08:46 Expected date of discharge: 07/19/24 Attending physician: Odilia Hargrove MD Primary care physician: Stated None Hospital Course: Ms. Yu is a 24 year old now PPD#1 s/p . The patient is doing well this morning and had no acute events overnight. She has no complaints this morning. She reports minimal lochia, passing flatus, voiding without difficulty, ambulating, and eating/drinking without nausea or vomiting. doing well at bedside. She denies chest pain, shortness of breathing, fevers, or chills overnight. She denies pain or swelling in the legs. restrictions are reviewed with the patient including pelvic rest for 6 weeks. The patient is encouraged to call the office if she experiences any heavy bleeding, foul- smelling discharge, breast complaints, or any if she has any other concerns. She will follow up in the office with in 6 weeks for exam. All questions are answered. Patient Condition at Discharge: Good Plan - Discharge Summary New Discharge Prescriptions: New Docusate [Colace] 100 mg PO BID PRN #60 capsule PRN Reason: Constipation Ibuprofen [Motrin] 600 mg PO Q6HR PRN #30 tab PRN Reason: Mild Pain (Scale 1 To 3) Acetaminophen Tab [Tylenol] 650 mg PO Q6H PRN #30 tab PRN Reason: Mild Pain (Scale 1 To 3) No Action Sertraline [Zoloft] 1 tab PO DAILY Vits96/Iron Fum/Folic [ Tablet] 1 tab PO DAILY Discharge Medication List Vits96/Iron Fum/Folic [ Tablet] 1 tab PO DAILY 12/08/21 [History] Sertraline [Zoloft] 1 tab PO DAILY 12/08/21 [History] Acetaminophen Tab [Tylenol] 650 mg PO Q6H PRN #30 tab 07/19/24 [Rx] Docusate [Colace] 100 mg PO BID PRN #60 capsule 07/19/24 [Rx] Ibuprofen [Motrin] 600 mg PO Q6HR PRN #30 tab 07/19/24 [Rx] Follow up Appointment(s)/Referral(s): Odilia Hargrove MD [STAFF PHYSICIAN] - 6 Weeks Activity/Diet/Wound Care/Special Instructions: Instructions 1. Do not begin any exercise program for 3 weeks. 2. Do not resume sexual relations for 6 weeks or longer if uncomfortable. 3. You may take tub baths or showers at any time. 4. You may use tampons if desired after 6 weeks. 5. Keep any areas repaired with stitches clean and dry. 6. If you are not nursing, wear a good fitting, supportive bra during the day and limit fluid intake for at least 1 week to prevent breast engorgement. 7. Call the office, , within the next week to make appointment for your 6 week checkup if it has not already been made. 8. Report any of the following occurrences to the doctor promptly: a. Heavy, excessive bleeding b. Chills, fever c. Burning or frequency of urination d. Pain or redness and breasts if nursing e. Increasing pain or swelling of vulva (stitches). In addition to the above instructions, the following additional should be followed: 1. No heavy lifting or straining (exercising) until after 6 week checkup. 2. Keep abdominal incision clean and dry: You may wear a dressing if more comf ortable. 3. Make office appointment for 2 weeks after delivery date. Discharge Disposition: HOME SELF-CARE
== END 2024-07-19 13:45 | disposition home or self-care (01) | DRG 560 ==
LOC: 4FBP 08:46
PROVIDERS: ADMIT Obstetrics & Gynecology; ATTEND Obstetrics & Gynecology
PROC: 10E0XZZ Delivery of Products of Conception, External Approach (ICD-10-PCS; principal; 2024-07-18)
PROC: 10907ZC Drainage of Amniotic Fluid, Therapeutic from Products of Conception, Via Natural or Artificial Opening (ICD-10-PCS; 2024-07-18)
DX: O80 Encounter for full-term uncomplicated delivery (principal); Z37.0 Single live birth; Z3A.38 38 weeks gestation of pregnancy; Z87.891 Personal history of nicotine dependence
CPT/HCPCS: 80306; 85025; 86850; 86900; 86901